=== PATIENT | female | born 1950 | race Caucasian/White ===

== ENCOUNTER 2020-06-03 06:53 | Observation (INO) ==
--- NOTE | 2020-05-12 15:00 | PAT Medication Instructions ---
Medication Instructions Date of Service May 12, 2020 Home Medications Medication Instructions Recorded epinephrine 0.3 mg/0.3 mL 0.3 mg IM Q15M PRN #2 ea 03/17/20 injection, auto-injector ascorbic acid (vitamin C) 1,000 mg tablet 1 g PO QAM aspirin 81 mg tablet,delayed release 81 mg PO QAM cholecalciferol (vitamin D3) 25 mcg (1,000 unit) capsule 25 mcg PO QPM ibuprofen 200 mg capsule 400 - 600 mg PO Q6H PRN magnesium 250 mg tablet 250 mg PO QPM multivitamin 1 tab PO QPM psyllium husk 0.4 gram capsule 0.4 g PO QPM epinephrine 0.3 mg/0.3 mL injection, auto-injector 0.3 mg IM Q15M PRN ] Cbd Oil 1 dose TOPICAL HS Continue as directed epinephrine 0.3 mg/0.3 mL injection, auto-injector 0.3 mg IM Q15M PRN (if needed) ASK your surgeon for instructions ibuprofen 200 mg capsule 400 - 600 mg PO Q6H PRN STOP taking 24 hours before surgery Cbd Oil 1 dose TOPICAL HS DO NOT take the morning of surgery ascorbic acid (vitamin C) 1,000 mg tablet 1 g PO QAM Take morning of surgery With a small sip of water, OTHERWISE NOTHING TO EAT OR DRINK AFTER MIDNIGHT: aspirin 81 mg tablet,delayed release 81 mg PO QAM Take evening before surgery cholecalciferol (vitamin D3) 25 mcg (1,000 unit) capsule 25 mcg PO QPM magnesium 250 mg tablet 250 mg PO QPM multivitamin 1 tab PO QPM psyllium husk 0.4 gram capsule 0.4 g PO QPM Other Notes If you have any questions please call us at [phone] or [phone] or [phone] or [phone]
--- NOTE | 2020-05-14 11:34 | Anesthesiology Consultation ---
Date of Service May 14, 2020 Assessment & Plan (1) Encounter for pre-operative examination: COVID Status: As of 05/14 assessment, patient denies travel to endemic area, known exposure/sick contacts, or symptoms of COVID19. Patient instructed that they and their household members must follow strict social distancing guidelines, wear a mask in public and avoid travel for 14 days prior to surgery. Preoperative COVID19 testing to be completed prior to surgery per surgeon's ar rangements. Patient made aware to self-isolate as much as possible between COVID testing and surgery. Chart Review Chart Review: Acceptable Risk for Surgery and Patient seen in Pre Admission Testing Teaching & Discussion Instructed NPO after midnight before surgery, except medications with 15 cc of w ater. Medication instructions provided according to the PAT guidelines. History Surgery Operation Date: 06/03/20 09:05 Proposed Procedures p Left Total Knee Arthroplasty - Quintin Mary MD Height/Weight Height: 5 ft 7 in Weight: 66 kg Allergies Allergy/AdvReac Type Severity Reaction Status Date / Time hornet venom Allergy Intermediate Hives Verified 05/11/20 13:11 codeine AdvReac Mild itching Verified 05/11/20 13:11 Medications Home Medications Medication Instructions Recorded Confirmed Last Taken ascorbic acid (vitamin C) 1,000 mg 1 g PO QAM 03/04/20 05/11/20 05/11/20 tablet aspirin 81 mg tablet,delayed 81 mg PO QAM 03/04/20 05/11/20 05/01/20 release cholecalciferol (vitamin D3) 25 25 mcg PO QPM 03/04/20 05/11/20 05/10/20 mcg (1,000 unit) capsule ibuprofen 200 mg capsule 400 - 600 mg PO Q6H PRN 03/04/20 05/11/20 05/01/20 magnesium 250 mg tablet 250 mg PO QPM 03/04/20 05/11/20 05/10/20 multivitamin 1 tab PO QPM 03/04/20 05/11/20 05/10/20 psyllium husk 0.4 gram capsule 0.4 g PO QPM 03/04/20 05/11/20 Unknown epinephrine 0.3 mg/0.3 mL 0.3 mg IM Q15M PRN #2 ea 03/17/20 05/11/20 Unknown injection, auto-injector Cbd Oil 1 dose TOPICAL HS 05/08/20 05/11/20 Unknown Past Medical History Medical History (Updated 05/14/20 @ 14:07 by Jere Mathias) Chronic back pain Degenerative disc disease Emphysema of lung Noted on pre-op CXR Mitral valve prolapse Pt reports very remote h/o echocardiogram, found incidentally. No murmur noted on exam. Osteoarthritis Restless leg syndrome Exercise / Class Metabolic Activity II 4-5 Yardwork/Stairs/Walk up hill (Denies CP or SOB with 1 FOS) Past Family History Family History Uncle Myocardial infarction Mother Hypertension Sister Hypertension Denies family history of Ovarian cancer Prostate cancer Breast cancer Colorectal cancer Past Surgical History Surgical History H/O knee surgery MULTIPLE LEFT KNEE SURGERY (INCLUDING MUSCLE TRANSPLANT) History of cataract surgery LEFT History of esophagogastroduodenoscopy (EGD) History of left femoral derotational osteotomy Nausea and vomiting after administration of anesthetic agent Past Anesthesia History No Hx of Anesthesia Complications (other than PONV and mild headache after spinal) and No Family Hx of Anesthesia Complications Pt reports mild headache after spinal injections in the past, denies true spinal headache. History of PONV History of PONV and Hx of Motion Sickness Social History Smoking Status: Never smoker Do You Dip or Chew Tobacco: No Hx Alcohol Use: Yes Alcohol type: beer alcohol intake frequency: 0-2 drinks per day Hx Substance Use: No substance use type: other Substance Use Type Other:: CBD OIL TOPICALLY HAND/NIGHTLY Last Used Substance: Unknown Review of Systems Pt denies any recent chest pain, shortness of breath, palpitations, cough, fever , URI, or uncontrolled acid reflux. Physical Exam Vital Signs BP: 128/79 P: 75bpm SPO2: 100% RA T: 97.8 F R: 12 ENMT Mouth: + dental restorations (2 gold crowns); no chipped teeth and no loose teeth Thyromental Distance: > or= 3.5 Finger Breadths Mallampati Class: II Neck normal visual inspection; neck extension not limited Respiratory normal respiratory effort Auscultation: lungs clear to auscultation bilaterally Cardiovascular Rate/Rhythm: regular rate and regular rhythm Heart Sounds: no murmur Extremities: no edema Testing Laboratory Results 05/14/20 11:45 05/14/20 11:45 PT 10.9 Seconds (9.0-12.0) 05/14/20 11:45 INR 1.0 (0.9-1.1) 05/14/20 11:45 APTT 24.8 Seconds (21.0-31.0) 05/14/20 11:45 Blood Type B Positive 05/14/20 11:45 Antibody Screen NEGATIVE 05/14/20 11:45 Electrocardiogram Date: 05/08/20 Findings: + NSR @ (63bpm) Chest X-Ray Date: 05/14/20 IMPRESSION: 1. No active disease in the chest. 2. Suspect emphysema.
--- NOTE | 2020-05-14 12:10 | XRay Report ---
TWO VIEW CHEST CLINICAL HISTORY: Preoperative examination. FINDINGS: PA and lateral chest radiographs are obtained. No prior studies are available for compariso n at the time of dictation. The cardiomediastinal silhouette is unremarkable. The lungs are hyperinf lated and hyperlucent with flattening the diaphragm. The appearance suggests obstructive physiology. Nonspecific interstitial thickening is likely chronic. No airspace consolidation or pleural effusion is seen. There is no pneumothorax. The skeletal structures are osteopenic. The bony thorax appears in tact. Degenerative change and hyperkyphosis is noted in the thoracic spine. IMPRESSION: 1. No active disease in the chest. 2. Suspect emphysema. ACT 112: Negative or not required by law. Electronically signed by: Ravi Ansari M.D. 05/14/2020 12:09 PM
[2020-05-14 12:23] LABS: Basophils # (auto) 0.04 K/uL (0-0.2); Basophils % (auto) 0.8 %; Eosinophils # (auto) 0.07 K/uL (0-0.5); Eosinophils % (auto) 1.4 %; Hematocrit (blood only) 39.7 % (37-47); Hemoglobin 13.8 g/dL (12.0-16.0); Immature Granulocytes # (auto) 0.01 K/uL (0.00-0.02); Immature Granulocytes % (auto) 0.2 %; Lymphocytes # (auto) 1.35 K/uL (1.2-3.4); Lymphocytes % (auto) 26.9 %; Mean Corpuscular Hemoglobin 30.1 pg (25-34); Mean Corpuscular Hgb Conc 34.8 g/dL (32-36); Mean Corpuscular Volume 86.7 fL (80-100); Mean Platelet Volume 9.3 fL (7.4-10.4); Neutrophils # (auto) 3.25 K/uL (1.4-6.5); Neutrophils % (auto) 64.7 %; Platelet Count 348 K/uL (130-400); RDW Coefficient of Variation 12.1 % (11.5-14.5); RDW Standard Deviation 38.8 fL (36.4-46.3); Red Blood Count 4.58 M/uL (4.2-5.4); White Blood Count 5.02 K/uL (4.8-10.8)
[2020-05-14 12:39] LABS: Partial Thromboplastin Ratio 0.9; Partial Thromboplastin Time 24.8 Seconds (21.0-31.0); Prothrombin Time 10.9 Seconds (9.0-12.0)
[2020-05-14 14:21] LABS: BUN Creatinine Ratio 18.5 (10-20); Blood Urea Nitrogen 12 mg/dl (7-18); C Reactive Protein < 0.29 mg/dl (0-0.29); Calcium 9.1 mg/dl (8.5-10.1); Carbon Dioxide 26 mmol/L (21-32); Chloride 104 mmol/L (98-107); Creatinine Clr Calc Pharmacy 78.2 ml/min; Est GFR (African American) 104.5; Est GFR (Non-African American) 90.1; Glucose 85 mg/dl (70-99); Sodium 136 mmol/L (136-145)
[~2020-06-03 06:53] MED LIST: ACETAMINOPHEN 500 MG TAB PO SCH; BUPIVACAINE LIPOSOME/PF 266 MG, BUPIVACAINE/EPINEPHRINE 50 ML, SODIUM CHLORIDE 0.9% 30 ... INFIL SCH; FAMOTIDINE 20 MG TAB PO SCH; GABAPENTIN 300 MG CAP PO SCH; LR 500ML BOLUS, THEN 15ML/HR IV SCH; LR 60ML/HR IV SCH; METOCLOPRAMIDE HCL 10 MG TABLET PO SCH; TRANEXAMIC ACID 1,000 MG **IV Intra-op IV SCH; ceFAZolin 2000MG 2,000 MG/15 ML SYR IV SCH
[2020-06-03] MEDS ORDERED: BUPIVACAINE 0.5 % 5 MG/1 ML PF 10ML VIAL ONE (07:30)
[2020-06-03] MEDS ORDERED: BUPIVACAINE 0.25% 30 ML VIAL ONE ×2 (07:30→09:08)
[2020-06-03] MEDS ORDERED: LIDOCAINE HCL 2% 2 ML VIAL/AMP(20MG/ML) INFIL ONE (07:42)
[2020-06-03] MEDS ORDERED: PROPOFOL IV EMULSION 10 MG/ML 20 ML VIAL IV ONE (07:42)
[2020-06-03] MEDS ORDERED: ePHEDrine sulfate 50 MG/ML SYR ONE (07:42)
[2020-06-03] MEDS ORDERED: fentaNYL citrate 100 MCG/2 ML VIAL ONE (07:43)
[2020-06-03] MEDS ORDERED: MIDAZOLAM HCL 1 MG/ML 2ML VIAL ONE ×2 (07:43)
[2020-06-03] MEDS ORDERED: ePHEDrine sulfate 50 MG/ML AMP IV PRN (08:15)
[2020-06-03] MEDS ORDERED: ONDANSETRON INJ 2 MG/ML 2 ML VIAL IV PRN ×2 (08:15→12:20)
[2020-06-03] MEDS ORDERED: fentaNYL citrate 100 MCG/2 ML VIAL IV PRN (08:15)
[2020-06-03] MEDS ORDERED: ATROPINE SULFATE 0.1 MG/ML 10ML SYR IV PRN (08:15)
[2020-06-03] MEDS ORDERED: SODIUM CHLORIDE 0.9% PF 50 ML VIAL ONE (09:08)
[2020-06-03] MEDS ORDERED: EPINEPHrine INJ 1 MG/ML AMP ONE (09:08)
[2020-06-03] MEDS ORDERED: BUPIVACAINE LIPOSOME 1.3% 266 MG/20 ML VIAL ONE (09:08)
[2020-06-03] MEDS ORDERED: BACITRACIN INJ 50,000 UNIT VIAL ONE (09:08)
--- NOTE | 2020-06-03 09:15 | History & Physical Bridge Note ---
Date of Service June 03, 2020 History & Physical Bridge Note I have examined the patient, reviewed the History & Physical and in the interval since the performance of the History & Physical I have noted the following changes of clinical significance: no changes noted
[2020-06-03] MEDS ORDERED: VANCOMYCIN HCL 1000MG/20ML VIAL ONE (09:35)
--- NOTE | 2020-06-03 11:18 | Post Operative Brief Note ---
PG Immediate Post Op with CF Date of Surgery June 03, 2020 Pre & Post Diagnosis Operation Date: 06/03/20 09:05 Pre-Op Diagnosis: Left Knee Degenerative Joint Disease Post-Op Diagnosis: Left Knee Degenerative Joint Disease I identified the patient and participated in the time-out.: Yes Procedure Operation Date: 06/03/20 09:05 Actual Procedures p Left Total Knee Arthroplasty, Cemented(Left) - Quintin Mary MD Surgeon Quintin Mary MD Breeding Manager GRACE Moya Estimated Blood Loss 50 Findings Consistent with Post-Op Diagnosis Fluids 2000 cc Specimens Specimen Description: Permanent Specimen A: Left knee bone and tissue Drains Kellogg Catheter Anesthesia Type Spinal MAC Complications none Disposition Accompanied Patient To Recovery: No Disposition: Recovery Room
--- NOTE | 2020-06-03 12:02 | XRay Report ---
XR knee LT 1 or 2V routine HISTORY: 70 years-old Female Surgical Post Op left knee total joint arthroplasty COMPARISON: Knee radiographs 03/18/2020 TECHNIQUE: 2 views of the left knee FINDINGS: Left knee total joint arthroplasty and patella resurfacing. No acute fracture, malalignment or unexpe cted opaque foreign body. Anterior midline skin alex are present along with expected postsurgical soft tissue swelling and deep tissue air with surgical drainage catheter. IMPRESSION: Left knee total joint arthroplasty and patella resurfacing with expected postoperative ch anges. ACT 112: Negative or not required by law. The above report was generated using voice recognition software. It may contain grammatical, syntax o r spelling errors. Electronically signed by: Jeronimo Del Valle M.D. 06/03/2020 12:00 PM
[2020-06-03] MEDS ORDERED: HYDROmorphone INJ 0.5 MG/0.5 ML SYR IV PRN (12:20)
[2020-06-03] MEDS ORDERED: MAGNESIUM HYDROXIDE SUSP 30 ML UDC PO PRN (12:20)
[2020-06-03] MEDS ORDERED: ALUMINUM/MAGNESIUM SUSP 30 ML UDC PO PRN (12:20)
[2020-06-03] MEDS ORDERED: METOCLOPRAMIDE HCL INJ 5 MG/ML 2 ML VIAL IV PRN (12:20)
[2020-06-03] MEDS ORDERED: NALOXONE HCL 0.4 MG/1 ML VIAL/CARP IV PRN (12:20)
[2020-06-03] MEDS ORDERED: bisacodyL 10 MG SUPP PR PRN (12:20)
[2020-06-03] MEDS ORDERED: EPINEPHrine ADULT AUTO-INJECT 0.3 MG SYR IM PRN (12:20)
[2020-06-03] MEDS: ACETAMINOPHEN 500 MG TAB PO SCH ×2 (14:00→23:57)
--- NOTE | 2020-06-03 14:31 | Anesthesiology Progress Note ---
Date of Service June 03, 2020 Anesthesia Post Procedure Vital Signs Vital Signs: Temp Pulse Pulse Resp BP BP Pulse Ox 06/03/20 14:10 63 16 119/76 97 06/03/20 13:26 78 16 116/73 96 06/03/20 11:50 37.0 C 76 15 128/74 97 06/03/20 11:40 73 19 121/76 95 06/03/20 11:30 76 12 125/74 95 06/03/20 11:24 36.5 C 80 16 129/79 95 06/03/20 08:29 36.8 C 75 18 151/89 H 98 06/03/20 07:11 36.7 C 81 18 151/79 H Transfer of Care Handoff Completed per policy Notes Mental Status: alert / awake / arousable and participated in evaluation Patient Amnestic to Procedure: Yes Nausea / Vomiting: adequately controlled Pain: adequately controlled Airway Patency, RR, SpO2: stable & adequate BP & HR: stable & adequate Hydration State: stable & adequate Neuraxial Anesthesia: was administered and sensory block is resolving Anesthetic Complications: no major complications apparent and Pt Satisfied with anesthetic care
[2020-06-03] MEDS: KETOROLAC TROMETHAMINE 15 MG/ML VIAL IV SCH ×2 (15:38→20:22)
[2020-06-03] MEDS: SODIUM CHLORIDE 0.9% 1000ML 1,000 ML IV SCH ×2 (15:38→23:58)
[2020-06-03] MEDS: Scopolamine CHECK PATCH PLACEMENT SCH ×2 (17:00→23:59)
[2020-06-03] MEDS ORDERED: ASCORBIC ACID 500 MG TAB PO SCH (17:00)
[2020-06-03] MEDS: FERROUS GLUCONATE 324 MG TAB PO SCH (17:00)
[2020-06-03] MEDS: ceFAZolin 1000MG 1,000 MG/7.5 ML SYR IV SCH (17:11)
[2020-06-03] MEDS ORDERED: TRANEXAMIC ACID / 0.7% NACL 1,000 MG/100 ML BAG IV SCH (17:21)
--- NOTE | 2020-06-03 19:14 | Operative Report ---
Post Operative Report Pre & Post Diagnosis Operation Date: 06/03/20 09:05 Pre-Op Diagnosis: Left Knee Degenerative Joint Disease Post-Op Diagnosis: Left Knee Degenerative Joint Disease I identified the patient and participated in the time-out.: Yes Procedure Operation Date: 06/03/20 09:05 Actual Procedures p Left Total Knee Arthroplasty, Cemented(Left) - Quintin Mary MD Surgeon Quintin Mary MD Brake Liner GRACE Moya Estimated Blood Loss 50 Findings Consistent with Post-Op Diagnosis Operative findings revealed advanced left knee tricompartment DJD. She had extensive grade 4 [id number] disease in all 3 compartments with erosions in all 3 compartments. She had osteophytes in all 3 compartments. She had the ACL and PCL deficiency with bone growing in the intercondylar notch. She had a very stiff knee with about a 10 degree flexion contracture and could only bend about 90 degrees. Fluids 2000 cc Specimens Left knee sent for pathology. Drains None. Anesthesia Type Spinal MAC Complications none Disposition Accompanied Patient To Recovery: No Disposition: Recovery Room Indications Patient is a 70-year-old female has had a long history of left knee problems. She is undergone a 5+ different operations on this knee in the past including VMO advancement, ACL reconstruction, and distal femoral osteotomy. Over the years she developed increased pain discomfort and deformity to her knee. She is now elected proceed with surgical treatment. Description of Procedure Operative implants consisted of: 1. Biomet Vanguard size 67.5 left posterior stabilized femoral component. 2. Biomet size 75 tibial tray. 3. 14 mm posterior stabilized polyethylene plus insert 4. 31 x 8 all polypatella. Patient was taken to the operating identified and placed on the operating table supine position. All contact areas were properly padded. IV antibiotics tried by anesthesia team. A spinal anesthetic and abductor canal block had provided holding area. Kellogg catheter was placed in sterile fashion. A left thigh turn was then placed in the left lower extremity was then prepped and draped in usual sterile fashion. The left leg was elevated exsanguinated with the use of an Esmarch and turns placed at 300 mmHg. An anterior approach left knee was then performed using the previous VMO mid incision. It was very curvilinear over the medial side of the kneecap and then extended proximally and distally. Full-thickness flaps were elevated down to the quad and extensor mechanism. Full-thickness flaps were elevated laterally. Her quad was extremely abnormal due to the previous VMO advancement. A medial parapatellar arthrotomy incision was made. Some subperiosteal dissection was carried out medially. The fat pad was resected from each patella tendon. Great care was taken throughout the procedure protect the patella tendon insertion at all times. The patella was subluxated laterally. The knee was flexed. The osteophytes were taken off the distal femur. The ACL and PCL were completely absent and covered with bone. The tibia was then subluxated anteriorly. The external tibial alignment jig was then placed in the interface the tibia and adjusted 12 mm medially. Proximal tibial cut was made to remove about 3 to 4 mm of bone from the medial tibia. The tibia was then sized to a size 75. We did try to maximize coverage due to her severe osteopenia. Attention drawn the femur. The distal femur was then with a sharp drop with intramedullary canal was suction. A left 5 degree valgus cutting guide was placed. This femoral cutting block was pinned in place and the distal femoral cut was made to take an additional 3 mm of bone off distal femur. I then brought the knee out in extension and very carefully released the IT band and 7 the posterior lateral capsule in order to equalize extension gap. Great care was taken to protect the peroneal nerve at all times. The knee was then flexed. The femur was then sized to a size 67.5. The AP cutting block was pinned parallel to the epicond ylar axis which was 70 degrees of external rotation. The anterior cut, anterior chamfer, posterior cut, posterior chamfer cuts were made. Box cutting guide was placed in just slight lateral box cut was made. The knee was flexed. The remnants of the medial lateral menisci were excised. Some large osteophytes were taken off the posterior aspect of the femur. A trial femoral component was placed. The tibial tray was pinned in maximum external rotation and the drill and stem punch were used to create defect in proximal distal tibia for the tibial tray. I did have to release the popliteus in order to equalize the flexion space. I then trialed the knee. The 14 insert fit most appropriately. There was still a little bit of MCL laxity so we placed the PS plus insert. Attention drawn the patella. The patella was cleaned of all soft tissues. Patella thickness measured 22 mm in thickness was cut down to 14. Was sized to a size 31 patella. The lateral osteophyte was removed. Patella button was placed. Knee was taken through range of motion patella tracked nicely with no thumbs test. Attention drawn to placing the permanent components. All trial components were removed. A bone plug was placed in the distal femur limit blood loss. A double batch [place] G cement was mixed. I did add an additional gram of vancomycin due to her history of multiple surgeries. A Biomet Vanguard size 67.5 left posterior stabilized femoral component, size 75 tibial tray, 14 mm PS plus insert and a 31 x 8 all polypatella were then cemented in place. Knee was brought out in full extension total cement hardened. Final cement checkup then performed. Pericapsular tissues were injected with total 100 cc of combination of 20 cc of Exparel, 30 cc normal saline, 50 cc of quarter percent Marcaine with epinephrine. The patient did receive 1 g tranexamic acid per the tourniquet was then let down for final turn time 67 minutes. Hemostasis assured use electrocautery. The extensor mechanism closed with combination 1 PDS suture and #1 Vicryl suture in [id number] fashion. Extensor mechanism checked found to be intact the subcutaneous tissue then closed with 2 Dexon suture in a buried interrupted fashion skin was closed skin alex. Leg was then cleaned dried a sterile dressing composed Xeroform, 4 x 4's, sterile cast padding, Samm bandage were applied. Patient then transfer red to the recovery room in stable condition. The patient tolerated procedure well and there were no complications. Tin Moya, my physician investment sales assistant, was present for the entire procedure. His assistance was essential and required for appropriate patient positioning, prepping and draping, surgical exposure, performing the technical details of the operation, placement the implants, closure of the wound, and placement of the sterile bandage. I attest to the content of the Intraoperative Record and any orders documented therein. Any exceptions are noted below.
[2020-06-03] MEDS: DOCUSATE SODIUM 100 MG CAP PO SCH (20:23)
[2020-06-03] MEDS: ASPIRIN 81 MG ECTAB PO SCH (20:23)
[2020-06-03] MEDS ORDERED: MAGNESIUM OXIDE 400 MG TAB PO SCH (21:00)
[2020-06-03] MEDS ORDERED: PSYLLIUM 58.6% POWDER PACKET PO SCH (21:00)
[2020-06-03] MEDS ORDERED: SENNA 8.6 MG TAB PO SCH (21:00)
[2020-06-03] MEDS ORDERED: NON-FORMULARY MEDICATION (Cbd Oil 1 EA) TOP SCH (21:00)
[2020-06-03] MEDS ORDERED: MULTIVITAMIN TAB PO SCH (21:00)
[2020-06-03] MEDS ORDERED: CHOLECALCIFEROL 1,000 UNITS 25 MCG TAB PO SCH (21:00)
[2020-06-03] MEDS: traMADol HCL 50 MG TABLET PO PRN (23:54)
[2020-06-04] MEDS: ceFAZolin 1000MG 1,000 MG/7.5 ML SYR IV SCH (02:13)
[2020-06-04] MEDS: KETOROLAC TROMETHAMINE 15 MG/ML VIAL IV SCH ×2 (02:13→07:45)
[2020-06-04] MEDS: traMADol HCL 50 MG TABLET PO PRN (05:56)
[2020-06-04] MEDS: DOCUSATE SODIUM 100 MG CAP PO SCH (07:42)
[2020-06-04] MEDS: FERROUS GLUCONATE 324 MG TAB PO SCH (07:42)
[2020-06-04] MEDS: ASPIRIN 81 MG ECTAB PO SCH (07:42)
[2020-06-04] MEDS: Scopolamine CHECK PATCH PLACEMENT SCH (07:43)
[2020-06-04] MEDS: ACETAMINOPHEN 500 MG TAB PO SCH (07:45)
[2020-06-04 08:00] VITALS: PULSE 64; TEMP 97.6; O2SAT 95
[2020-06-04 08:16] LABS: Hematocrit (blood only) 33.1 % (37-47); Hemoglobin 11.3 g/dL (12.0-16.0); Mean Corpuscular Hemoglobin 29.7 pg (25-34); Mean Corpuscular Hgb Conc 34.1 g/dL (32-36); Mean Corpuscular Volume 87.1 fL (80-100); Mean Platelet Volume 9.3 fL (7.4-10.4); Platelet Count 251 K/uL (130-400); RDW Coefficient of Variation 12.2 % (11.5-14.5); RDW Standard Deviation 39.2 fL (36.4-46.3); White Blood Count 6.21 K/uL (4.8-10.8)
--- NOTE | 2020-06-04 08:37 | Progress Notes ---
DATE: 06/04/2020 SUBJECTIVE: A 70-year-old female postoperative day 1 from a left knee replacement. She is doing pretty well. Had a little bit more pain last night, but doing okay with pain pills. No chest pain or shortness of breath. Not feeling dizzy or lightheaded. OBJECTIVE: VITAL SIGNS: Temperature 36.5. Vital signs stable. GENERAL: Shows a pleasant, middle-aged female. She is lying in bed this morning and looks pretty comfortable. EXTREMITIES: Examination of the left leg reveals the leg to be well aligned. Dressing is clean, dry and intact. She can dorsiflex and plantarflex her foot appropriately. She can do a good straight leg raise. LABORATORY DATA: Labs are pending. ASSESSMENT: A 70-year-old white female postoperative day 1 from a left knee replacement. She is doing pretty well. Pain is controlled. She is neurologically intact. PLAN: 1. DVT prophylaxis including thigh-high TEDs, SCDs, and aspirin twice a day. 2. PT/OT. Weight bear as tolerated. Left total knee protocol. 3. Pain control, doing okay with current pain regimen. 4. Disposition: Plan to discharge to home with some home health. We will see how therapy goes today and her pain control.
[2020-06-04 08:42] LABS: BUN Creatinine Ratio 16.6 (10-20); Calcium 8.3 mg/dl (8.5-10.1); Est GFR (African American) 106.1; Est GFR (Non-African American) 91.5
[2020-06-04] MEDS ORDERED: ASCORBIC ACID 500 MG TAB PO SCH (09:00)
[2020-06-04] MEDS ORDERED: MULTIVITAMIN TAB PO SCH (09:00)
[2020-06-04 10:31] VITALS: BP 127/69
--- NOTE | 2020-06-08 15:30 | Discharge Summary ---
Date of Service June 08, 2020 Admission HPI Per Admitting Provider Documented in the H & P Admission Exam (Per Admitting) Constitutional Documented in the H & P Discharge Data Consultations 06/03/20 12:20 Consult Case Management - Discharge Planning Routine Procedures Performed Operation Date: 06/03/20 09:05 Actual Procedures p Left Total Knee Arthroplasty, Cemented(Left) - Quintin Mary MD Hospital Course (1) Status post total left knee replacement: This patient is a 70 year old female admitted on 06/03/20 and underwent total knee arthroplasty. She tolerated the procedure well and there were no complications. Transferred to the PACU post op and later to the orthopedic floor for further care. She was given ancef for antibiotic prophylaxis. She was also given LIZZETTE stockings, SCDs, and aspirin for DVT prophylaxis. Hemoglobin, hematocrit, and vital signs were monitored during her hospital stay and remained stable. Did not require any blood transfusions. There were no complications during her hospital stay. By post op day #1 the patient was tolerating a regular diet, pain was reasonably controlled with oral pain medicine, and she was participating in physical therapy. On post op day #1 the patient was discharged home and set up with home health care. She was given printed discharge instructions including prescriptions for extra strength tylenol, aspirin, iron supplement, and tramadol. Continue physical therapy, weight bearing as tolerated. Continue LIZZETTE stockings. Follow up approximately 2 weeks post op or sooner if there are problems or concerns. Coding Level of Care Code None Diagnoses Status post total left knee replacement Z96.652
== END 2020-06-04 13:12 | disposition home health service (06) ==
LOC: 3W 06:53 → ASU 06:53
DX: Z88.5 Allergy status to narcotic agent; M17.12 Unilateral primary osteoarthritis, left knee; Z82.49 Family history of ischemic heart disease and other diseases of the circulatory system; Z79.82 Long term (current) use of aspirin; Z79.899 Other long term (current) drug therapy; Z91.030 Bee allergy status

== ENCOUNTER 2020-10-13 08:29 | Observation (INO) ==
--- NOTE | 2020-10-05 09:48 | Anesthesiology Consultation ---
Date of Service October 05, 2020 Assessment & Plan (1) Encounter for pre-operative examination: Chart Review Chart Review: Acceptable Risk for Surgery (pending preop Covid testing results ) and Patient NOT seen in Pre Admission Testing *Pt [facility] Per nursing assessment 09/17/20, patient denies any recent travel. No known Covid positive contacts or Covid related symptoms. No known Covid infection in the past 90 days. Scheduled for preop Covid testing 10/07/20= will await results. Pt received first Covid vaccine. Left TKA 06/03/20= Done under SAB at L4-5 with 1 attempt. No issues noted per anesthesia record. History Surgery Operation Date: 10/13/20 07:00 Proposed Procedures p Right Total Knee Arthroplasty - Quintin Mary MD Height/Weight Height: 5 ft 7 in Weight: 68.039 kg Allergies Allergy/AdvReac Type Severity Reaction Status Date / Time hornet venom Allergy Intermediate Hives Verified 09/17/20 12:19 codeine AdvReac Mild itching Verified 09/17/20 12:19 Medications Home Medications Medication Instructions Recorded Confirmed Last Taken ascorbic acid (vitamin C) 1,000 mg 1 g PO QAM 03/04/20 09/18/20 06/02/20 09:00 tablet cholecalciferol (vitamin D3) 25 25 mcg PO QPM 03/04/20 09/18/20 06/02/20 22:00 mcg (1,000 unit) capsule ibuprofen 200 mg capsule 400 - 600 mg PO Q6H PRN 03/04/20 09/18/20 05/26/20 magnesium 250 mg tablet 250 mg PO QPM 03/04/20 09/18/20 06/02/20 22:00 multivitamin 1 tab PO QPM 03/04/20 09/18/20 06/02/20 22:00 psyllium husk 0.4 gram capsule 0.4 g PO QPM 03/04/20 09/18/20 06/02/20 22:00 epinephrine 0.3 mg/0.3 mL 0.3 mg IM Q15M PRN #2 ea 03/17/20 09/18/20 Unknown injection, auto-injector Cbd Oil 1 dose TOPICAL HS PRN 05/08/20 09/18/20 Unknown aspirin [Aspir-81] 81 mg PO QAM 09/17/20 09/18/20 Unknown calcium 500 mg PO PM 09/17/20 09/18/20 Unknown Past Medical History Medical History Borderline high cholesterol Chronic back pain Degenerative disc disease DJD (degenerative joint disease) Emphysema of lung Noted on pre-op CXR Mitral valve prolapse Pt reports very remote h/o echocardiogram, found incidentally. No murmur noted on PAT exam on 05/14/20 for left TKA on 06/03/20 which patient tolerated well per records Osteoarthritis Restless leg syndrome Past Family History Family History Uncle Myocardial infarction Mother Hypertension Sister Hypertension Denies family history of Ovarian cancer Prostate cancer Breast cancer Colorectal cancer Past Surgical History Surgical History (Updated 10/05/20 @ 10:12 by Gina Medina PA-C) H/O knee surgery MULTIPLE LEFT KNEE SURGERY (INCLUDING MUSCLE TRANSPLANT) History of cataract surgery LEFT History of dilatation and curettage History of esophagogastroduodenoscopy (EGD) History of left femoral derotational osteotomy History of left knee replacement Left TKA 06/03/20= Done under SAB at L4-5 with 1 attempt. Nausea and vomiting after administration of anesthetic agent Social History Smoking Status: Never smoker Do You Dip or Chew Tobacco: No Hx Alcohol Use: Yes Alcohol type: beer and wine alcohol intake frequency: 0-2 drinks per day Hx Substance Use: No substance use type: does not use Substance Use Type Other:: CBD OIL TOPICALLY HAND/NIGHTLY Last Used Substance: Unknown Testing Laboratory Results Blood Type B Positive 09/25/20 09:41 Antibody Screen NEGATIVE 09/25/20 09:41 Laboratory Tests 09/25/20 09/25/20 09/25/20 09:37 09:37 09:37 WBC 3.93 L Hgb 13.7 Hct 40.2 Plt Count 298 PT 10.3 INR 1.0 Sodium 138 Potassium 4.0 Chloride 106 Carbon Dioxide 26 BUN 11 Creatinine 0.57 L Glucose 93 Electrocardiogram Date: 05/08/20 Findings: + NSR @ (63bpm) Chest X-Ray Date: 05/14/20 IMPRESSION: 1. No active disease in the chest. 2. Suspect emphysema.
[~2020-10-13 08:29] MED LIST changes: +BUPIVACAINE 0.5 % 5 MG/1 ML PF 10ML VIAL ONE; +EPINEPHrine INJ 1 MG/ML AMP ONE; +ROPIVACAINE 0.5% 5 MG/ML 30 ML VIAL ONE; +Scopolamine 1 MG TDSY TD SCH
--- NOTE | 2020-10-13 09:37 | History & Physical Bridge Note ---
Date of Service October 13, 2020 History & Physical Bridge Note I have examined the patient, reviewed the History & Physical and in the interval since the performance of the History & Physical I have noted the following changes of clinical significance: no changes noted
[2020-10-13] MEDS ORDERED: fentaNYL citrate 100 MCG/2 ML VIAL ONE (11:01)
[2020-10-13] MEDS ORDERED: MIDAZOLAM HCL 1 MG/ML 2ML VIAL ONE (11:01)
[2020-10-13] MEDS ORDERED: BUPIVACAINE LIPOSOME 1.3% 266 MG/20 ML VIAL ONE (11:43)
[2020-10-13] MEDS ORDERED: SODIUM CHLORIDE 0.9% PF 50 ML VIAL ONE (11:43)
[2020-10-13] MEDS ORDERED: BUPIVACAINE 0.25% 30 ML VIAL ONE (11:44)
[2020-10-13] MEDS ORDERED: BACITRACIN INJ 50,000 UNIT VIAL ONE (11:44)
[2020-10-13] MEDS ORDERED: EPINEPHrine INJ 1 MG/ML AMP ONE (11:44)
[2020-10-13] MEDS ORDERED: HYDROmorphone INJ 2 MG/ML SYR/VIAL ONE (12:36)
[2020-10-13] MEDS ORDERED: PROPOFOL IV EMULSION 10 MG/ML 20 ML VIAL IV ONE (13:51)
[2020-10-13] MEDS ORDERED: ONDANSETRON INJ 2 MG/ML 2 ML VIAL ONE (13:51)
[2020-10-13] MEDS ORDERED: LIDOCAINE HCL 2% 2 ML VIAL/AMP(20MG/ML) INFIL ONE (13:52)
--- NOTE | 2020-10-13 14:07 | Post Operative Brief Note ---
PG Immediate Post Op with CF Date of Surgery October 13, 2020 Pre & Post Diagnosis Operation Date: 10/13/20 10:40 Pre-Op Diagnosis: Right Knee Degenerative Joint Disease; Knee Pain Post-Op Diagnosis: Right Knee Degenerative Joint Disease; Knee Pain I identified the patient and participated in the time-out.: Yes Procedure Operation Date: 10/13/20 10:40 Actual Procedures p Right Total Knee Arthroplasty(Right) - Quintin Mary MD Surgeon Quintin Mary MD Felt Hooker GRACE Moya Estimated Blood Loss 50 Findings Consistent with Post-Op Diagnosis Fluids 1200 cc Specimens Specimen Description: Permanent Specimen: A) Right Knee Bone and Tissue Drains Kellogg Catheter Anesthesia Type General Regional Complications none Disposition Accompanied Patient To Recovery: No Disposition: Recovery Room
--- NOTE | 2020-10-13 14:21 | Operative Report ---
Post Operative Report Pre & Post Diagnosis Operation Date: 10/13/20 10:40 Pre-Op Diagnosis: Right Knee Degenerative Joint Disease; Knee Pain Post-Op Diagnosis: Right Knee Degenerative Joint Disease; Knee Pain I identified the patient and participated in the time-out.: Yes Procedure Operation Date: 10/13/20 10:40 Actual Procedures p Right Total Knee Arthroplasty(Right) - Quintin Mary MD Surgeon Quintin Mary MD [employer] GRACE Moya Estimated Blood Loss 50 Findings Consistent with Post-Op Diagnosis Operative findings with advanced right knee tricompartment DJD. She had pretty extensive grade 4 [id number] disease in all 3 compartments most severe in the lateral side. She diffuse osteopenia particular in the medial side. Moderate- sized joint effusion. She had a fixed valgus deformity to her knee. Fluids 1200 cc. Specimens Right knee sent for pathology. Drains None. Anesthesia Type General Regional Complications none Disposition Accompanied Patient To Recovery: Yes Disposition: Recovery Room Indications Patient is a 70-year-old female is had a long history of knee problems and progressive arthritis of both knees. She is extensive history of surgery in the left knee and had her left knee replaced about 3 or 4 months ago is done extremely well from this. Continued be limited by right knee pain discomfort. X-ray showed advanced right knee DJD. She elected proceed with surgical treatment. Description of Procedure Operative implants consist of: 1. Biomet Vanguard size 65 right posterior stabilized femoral component. 2. Biomet size 71 tibial tray. 3. 12 mm posterior stabilized polyethylene insert. 4. 28 x 8 all polypatella. The patient was taken the operating, identified, placed on the operating table supine position but all contact areas were properly padded. IV antibiotics were 5 by anesthesia team. A spinal anesthetic had been implemented the holding area but unsuccessful. She did have an abductor canal block. General anesthetic was implemented. A Kellogg catheter was placed in sterile fashion. Right thigh turn was then placed in the right lower extremities and prepped draped in usual sterile fashion. The right leg was elevated exsanguinated with use of an Esmarch interspace at 3 mmHg. An anterior approach to the right knee was then performed to longitudinal incision centered over the patella. Sharp dissection was got through subcutaneous tissue down the extensor mechanism. Medial parapatellar arthrotomy incision was made. Some subperiosteal dissection was carried out medially. The fat pad was resected from each patella tendon. Lateral patellofemoral ligament was released and the patella subluxated laterally. The knee was flexed. The osteophytes were taken off distal femur. The ACL and PCL were then released from distal femur and the tibia subluxated anteriorly. External tibial alignment jig was then placed in the interface the tibia and adjusted 12 mm medially. Proximal tibial cut was made to move a couple millimeters from the lateral side. The tibia size a size 71. Attention drawn the femur. The distal femur during the sharp drop with intramedullary canal was suction. A right 5 degree valgus cutting guide was placed. The distal femoral cutting block was pinned in place. Distal femoral cut was made to take an additional 3 mm of bone off distal femur. I then brought the knee out in extension. I did release the IT band in the posterior lateral capsule in order to equalize extension gap. I then sized the knee. The knee sized to a size 65. Downsize a slightly. The AP cutting block was pinned parallel to the epicondylar axis wh ich was 4 degrees of external rotation. Anterior cut, anterior chamfer, posterior cut, posterior chamfer cuts were made. Box cutting guide was placed in just slight lateral box cut was made. The knee was flexed. The remnants of the medial lateral menisci were excised. The osteophytes were taken off the posterior aspect of the femur. I did have to release the popliteus in order to equalize the flexion gap. A trial femoral component was placed. The tibial tray was pinned in maximum external rotation and the drill and stem punch were used to create defect in proximal to for the tibial tray. Knee was then trialed and the 12 mm insert was appropriately. Attention drawn the patella. Nipride the patella was cleaned of all soft tissues. Patella thickness measured 21 mm in thickness was cut down 13. Size a size 28 patella. The lug holes were drilled for the 28 patella. Lateral osteophyte was removed. Patella button was placed. Knee was taken through range of motion patella tracked nicely with no thumbs test. Attention drawn to placing permanent components. All trial components were removed. Bone plug was placed in the distal femur limit blood loss put a double batch Palacos G cement was mixed. A Biomet CommonBondguard size 65 right posterior stabilized femoral component, size size 71 tibial tray, a 12 mm posterior stabilized polyethylene insert, and a 28 x 8 all polypatella were then cemented in place. Knee was brought out in full extension total cement hardened. Final cement check was then performed. Pericapsular tissues were injected with total 100 cc of combination of 20 cc of Exparel, 30 cc of normal saline, 50 cc of quarter percent Marcaine with epinephrine. Patient did receive 1 g tranexamic acid. The tourniquet was then let down for final tourniquet time 65 minutes. Hemostasis assured with electrocautery. Extensor mechanism closed with combination 1 PDS suture #1 Vicryl suture in [id number] fashion. Extensor mechanism checked found to be intact the subcutaneous tissue then closed 2 Dexon suture in a buried interrupted fashion skin was closed skin alxe. Leg was then cleaned and dried a sterile dressing composed of Xeroform, 4 x 4's, sterile cast padding, Samm bandage were applied. Patient tolerated procedure well and there were no complications. She was brought out of general anesthesia and transferred to the recovery in stable co ndition. Tin Moya, my physician nutrition assistant, was present for the entire procedure. His assistance was essential and required for appropriate patient positioning, prepping and draping, surgical exposure, performing the technical details of the operation, placement the implants, closure of the wound, and placement of the sterile bandage. I attest to the content of the Intraoperative Record and any orders documented therein. Any exceptions are noted below.
--- NOTE | 2020-10-13 14:28 | XRay Report ---
XR knee RT 1 or 2V routine HISTORY: 70 years-old Female Surgical Post Op right knee total joint arthroplasty COMPARISON: Knee radiographs 08/03/2020 TECHNIQUE: 2 views the right knee FINDINGS: Right knee total joint arthroplasty and patella resurfacing. Anterior midline skin alex are noted along with expected postsurgical soft tissue swelling and deep tissue air. No acute fracture, malalig nment or unexpected opaque foreign body. 1.6 cm ossification projects over the popliteal tissues. IMPRESSION: Right knee total joint arthroplasty and patella resurfacing with expected postoperative c hanges. ACT 112: Negative or not required by law. The above report was generated using voice recognition software. It may contain grammatical, syntax o r spelling errors. Electronically signed by: Jeronimo Del Valle M.D. 10/13/2020 2:27 PM
[2020-10-13] MEDS ORDERED: MAGNESIUM HYDROXIDE SUSP 30 ML UDC PO PRN (15:20)
[2020-10-13] MEDS ORDERED: bisacodyL 10 MG SUPP PR PRN (15:20)
[2020-10-13] MEDS ORDERED: SODIUM CHLORIDE 0.9% 1000ML 1,000 ML IV SCH (15:20)
[2020-10-13] MEDS ORDERED: ONDANSETRON INJ 2 MG/ML 2 ML VIAL IV PRN (15:20)
[2020-10-13] MEDS ORDERED: NALOXONE HCL 0.4 MG/1 ML VIAL/CARP IV PRN (15:20)
[2020-10-13] MEDS ORDERED: NON-FORMULARY MEDICATION (Cbd Oil 1 EA) TOP PRN (15:20)
[2020-10-13] MEDS ORDERED: oxyCODONE HCL IR 5 MG TAB (IMMEDIATE RELEASE) PO PRN (15:20)
[2020-10-13] MEDS ORDERED: ALUMINUM/MAGNESIUM SUSP 30 ML UDC PO PRN (15:20)
[2020-10-13] MEDS ORDERED: HYDROmorphone INJ 0.5 MG/0.5 ML SYR IV PRN (15:20)
[2020-10-13] MEDS ORDERED: METOCLOPRAMIDE HCL INJ 5 MG/ML 2 ML VIAL IV PRN (15:20)
--- NOTE | 2020-10-13 15:25 | Anesthesiology Progress Note ---
Date of Service October 13, 2020 Anesthesia Post Procedure Vital Signs Vital Signs: Temp Pulse Pulse Resp BP BP Pulse Ox 10/13/20 14:55 36.6 C 89 18 117/73 92 10/13/20 14:45 89 13 121/73 94 10/13/20 14:35 73 17 145/69 H 98 10/13/20 14:25 85 20 138/69 99 10/13/20 14:15 36.4 C L 87 13 141/67 H 97 10/13/20 09:08 36.5 C 77 20 154/80 H 98 Transfer of Care Handoff Completed per policy Notes Mental Status: alert / awake / arousable Patient Amnestic to Procedure: Yes Nausea / Vomiting: adequately controlled Pain: adequately controlled Airway Patency, RR, SpO2: stable & adequate BP & HR: stable & adequate Hydration State: stable & adequate Anesthetic Complications: no major complications apparent
[2020-10-13] MEDS: Scopolamine CHECK PATCH PLACEMENT SCH (15:45)
[2020-10-13] MEDS ORDERED: EPINEPHrine INJ 1 MG/ML AMP IM PRN (15:53)
[2020-10-13] MEDS: KETOROLAC TROMETHAMINE 15 MG/ML VIAL IV SCH ×2 (16:21→21:23)
[2020-10-13] MEDS: ASCORBIC ACID 500 MG TAB PO SCH (17:38)
[2020-10-13] MEDS: FERROUS GLUCONATE 324 MG TAB PO SCH (17:38)
[2020-10-13] MEDS ORDERED: TRANEXAMIC ACID / 0.7% NACL 1,000 MG/100 ML BAG IV SCH (20:10)
[2020-10-13] MEDS ORDERED: traMADol HCL 50 MG TABLET PO PRN (20:15)
[2020-10-13] MEDS: DOCUSATE SODIUM 100 MG CAP PO SCH (20:33)
[2020-10-13] MEDS: ceFAZolin 1000MG 1,000 MG/7.5 ML SYR IV SCH (20:33)
[2020-10-13] MEDS: ASPIRIN 81 MG ECTAB PO SCH (20:33)
[2020-10-13] MEDS: TAPENTADOL HCL ER 50 MG TABCR PO SCH (20:41)
[2020-10-13] MEDS ORDERED: MAGNESIUM OXIDE 400 MG TAB PO SCH (21:00)
[2020-10-13] MEDS ORDERED: SENNA 8.6 MG TAB PO SCH (21:00)
[2020-10-13] MEDS ORDERED: MULTIVITAMIN TAB PO SCH (21:00)
[2020-10-13] MEDS ORDERED: CALCIUM CARBONATE 1250MG TAB PO SCH (21:00)
[2020-10-13] MEDS ORDERED: PSYLLIUM 58.6% POWDER PACKET PO SCH (21:00)
[2020-10-13] MEDS ORDERED: CHOLECALCIFEROL 1,000 UNITS 25 MCG TAB PO SCH (21:00)
[2020-10-13] MEDS: ACETAMINOPHEN 500 MG TAB PO SCH (21:23)
[2020-10-14] MEDS: Scopolamine CHECK PATCH PLACEMENT SCH ×2 (00:50→07:49)
[2020-10-14] MEDS: KETOROLAC TROMETHAMINE 15 MG/ML VIAL IV SCH ×2 (03:47→09:53)
[2020-10-14] MEDS: ceFAZolin 1000MG 1,000 MG/7.5 ML SYR IV SCH (03:47)
[2020-10-14] MEDS: ACETAMINOPHEN 500 MG TAB PO SCH (05:51)
[2020-10-14 07:25] LABS: Hematocrit (blood only) 30.5 % (37-47); Hemoglobin 10.7 g/dL (12.0-16.0); Mean Corpuscular Hemoglobin 29.6 pg (25-34); Mean Corpuscular Hgb Conc 35.1 g/dL (32-36); Mean Corpuscular Volume 84.3 fL (80-100); Mean Platelet Volume 9.2 fL (7.4-10.4); Platelet Count 243 K/uL (130-400); RDW Coefficient of Variation 12.3 % (11.5-14.5); RDW Standard Deviation 38.4 fL (36.4-46.3); Red Blood Count 3.62 M/uL (4.2-5.4); White Blood Count 7.65 K/uL (4.8-10.8)
[2020-10-14] MEDS: DOCUSATE SODIUM 100 MG CAP PO SCH (07:47)
[2020-10-14] MEDS: ASPIRIN 81 MG ECTAB PO SCH (07:48)
[2020-10-14] MEDS: FERROUS GLUCONATE 324 MG TAB PO SCH (07:48)
[2020-10-14] MEDS: ASCORBIC ACID 500 MG TAB PO SCH (07:48)
[2020-10-14 07:53] LABS: BUN Creatinine Ratio 16.9 (10-20); Calcium 7.9 mg/dl (8.5-10.1); Creatinine Clr Calc Pharmacy 83.3 ml/min; Est GFR (African American) 106.6; Potassium 4.1 mmol/L (3.5-5.1)
[2020-10-14] MEDS ORDERED: dexAMETHasone 4 MG TAB PO SCH (08:00)
--- NOTE | 2020-10-14 08:45 | Progress Notes ---
DATE: 10/14/2020 SUBJECTIVE: A 70-year-old white female postop day 1 from right knee replacement. She is doing well. Had a pretty good night. Pain is controlled. No chest pain or shortness of breath. Not feeling dizzy or lightheaded. OBJECTIVE: VITAL SIGNS: Temperature 36.8. Vital signs stable. GENERAL: Physical examination shows a pleasant, middle-aged female. She is lying in bed this morning and looks quite comfortable. EXTREMITIES: Examination of the right leg reveals the leg to be well aligned. Dressing is clean, dry and intact. She can dorsiflex and plantarflex her foot appropriately. She can do a pretty good straight leg raise. LABORATORY DATA: Hemoglobin 10.7. Hematocrit 30.5. Electrolytes are pending. ASSESSMENT: A 70-year-old white female postop day 1 from a right knee replacement, doing pretty well. Pain is controlled. She is neurologically intact. PLAN: 1. DVT prophylaxis including thigh-high TEDs, SCDs, and aspirin twice a day. 2. PT/OT. Weight bear as tolerated. Right total knee protocol. 3. Pain control, doing okay with current pain regimen. 4. Disposition: Plan to discharge to home later today. She is going to do outpatient therapy.
[2020-10-14] MEDS: TAPENTADOL HCL ER 50 MG TABCR PO SCH (08:55)
[2020-10-14] MEDS ORDERED: NON-FORMULARY MEDICATION (Ascorbic Acid (Vitamin C) 1,000 mg tablet) PO SCH (09:00)
[2020-10-14] MEDS ORDERED: MULTIVITAMIN TAB PO SCH (09:00)
--- NOTE | 2020-10-17 08:01 | Discharge Summary ---
Date of Service October 17, 2020 Discharge Data Procedures Performed Operation Date: 10/13/20 10:40 Actual Procedures p Right Total Knee Arthroplasty(Right) - Quintin Mary MD Hospital Course (1) Status post total right knee replacement: This patient is a 70 year old female admitted on 10/13/20 and underwent total knee arthroplasty. She tolerated the procedure well and there were no complications. Transferred to the PACU post op and later to the orthopedic floor for further care. She was given ancef for antibiotic prophylaxis. She was also given LIZZETTE stockings, SCDs, and aspirin for DVT prophylaxis. Hemoglobin, hematocrit, and vital signs were monitored during her hospital stay and remained stable. Did not require any blood transfusions. There were no complications during her hospital stay. By post op day #1 the patient was tolerating a regular diet, pain was reasonably controlled with oral pain medicine, and she was participating in physical therapy. On post op day #1 the patient was discharged home. She was given printed discharge instructions including prescriptions for extra strength tylenol, aspirin, and tramadol. Continue physical therapy, weight bearing as tolerated. Continue LIZZETTE stockings. Follow up approximately 2 weeks post op or sooner if there are problems or concerns. Coding Level of Care Code None Diagnoses Status post total right knee replacement Z96.651
== END 2020-10-14 13:15 | disposition home or self-care (01) ==
LOC: 3W 08:29 → ASU 08:29

== ENCOUNTER 2024-09-27 08:26 | Observation (INO) ==
--- NOTE | 2024-09-11 10:57 | PAT Medication Instructions ---
Medication Instructions Date of Service September 11, 2024 Home Medications Medication Instructions Recorded epinephrine 0.3 mg/0.3 mL 0.3 mg (0.3 mL) IM Q15M PRN 05/05/23 injection, auto-injector (EpiPen) anaphylaxis #2 ea gabapentin 300 mg capsule 300 mg PO TID #90 caps 05/15/24 ascorbic acid (vitamin C) 1,000 mg tablet 1 g PO QAM cholecalciferol (vitamin D3) 25 mcg (1,000 unit) capsule 25 mcg PO QPM ibuprofen 200 mg capsule 400 - 600 mg PO Q6H PRN Pain magnesium 250 mg tablet 250 mg PO QPM PRN muscle cramps multivitamin (Multiple Vitamins tablet) 1 tab PO QPM psyllium husk 0.4 gram capsule (Metamucil) 0.4 g PO QPM Cbd Oil 1 dose miscellaneous UD PRN Pain aspirin 81 mg tablet,delayed release 81 mg PO QAM calcium 500 mg tablet 500 mg PO PM epinephrine 0.3 mg/0.3 mL injection, auto-injector (EpiPen) 0.3 mg (0.3 mL) IM Q15M PRN anaphylaxis gabapentin 300 mg capsule 300 mg PO TID acetaminophen 500 mg tablet 500 mg PO Q6H PRN Pain losartan 100 mg tablet 100 mg PO QAM triamcinolone acetonide 0.1 % topical cream 1 applic topical BID PRN Skin Irritation Continue as directed epinephrine 0.3 mg/0.3 mL injection, auto-injector (EpiPen) 0.3 mg (0.3 mL) IM Q15M PRN anaphylaxis (if needed) ASK your surgeon for instructions ibuprofen 200 mg capsule 400 - 600 mg PO Q6H PRN Pain STOP taking 24 hours before surgery Cbd Oil 1 dose miscellaneous UD PRN Pain triamcinolone acetonide 0.1 % topical cream 1 applic topical BID PRN Skin Ir ritation DO NOT take the morning of surgery ascorbic acid (vitamin C) 1,000 mg tablet 1 g PO QAM losartan 100 mg tablet 100 mg PO QAM Take morning of surgery With a small sip of water, OTHERWISE NOTHING TO EAT OR DRINK AFTER MIDNIGHT: aspirin 81 mg tablet,delayed release 81 mg PO QAM (unless surgeon directed otherwise) gabapentin 300 mg capsule 300 mg PO TID acetaminophen 500 mg tablet 500 mg PO Q6H PRN Pain (if needed) Take evening before surgery cholecalciferol (vitamin D3) 25 mcg (1,000 unit) capsule 25 mcg PO QPM magnesium 250 mg tablet 250 mg PO QPM PRN muscle cramps (if needed) multivitamin (Multiple Vitamins tablet) 1 tab PO QPM psyllium husk 0.4 gram capsule (Metamucil) 0.4 g PO QPM calcium 500 mg tablet 500 mg PO PM gabapentin 300 mg capsule 300 mg PO TID acetaminophen 500 mg tablet 500 mg PO Q6H PRN Pain (if needed) Other Notes If you have any questions please call us at [phone] or [phone] or [phone] or [phone]
--- NOTE | 2024-09-13 08:35 | Anesthesiology Consultation ---
Date of Service September 13, 2024 Assessment & Plan (1) Encounter for pre-operative examination: - Outpatient joint assessment: Patient is currently scheduled for inpatient pathway. If re-evaluated and patient/surgeon requests outpatient pathway, patient is acceptable candidate for outpatient joint program from anesthesia standpoint pending surgeon's office assessment of pt motivation/support/completion of same day joint program preop requirements. Chart Review Chart Review: Acceptable Risk for Surgery and Patient seen in Pre Admission Testing Teaching & Discussion Pre-Anesthesia Teaching/Discussion Notes: Instructed NPO after midnight before surgery, except medications with 15 cc of water. Medication instructions provided according to the PAT guidelines. History Surgery Operation Date: 09/27/24 12:00 Proposed Procedures p Left Total Hip Arthroplasty Anterior - Daniel Moctezuma, Height/Weight Height: 5 ft 7 in Weight: 68.2 kg Allergies Allergy/AdvReac Type Severity Reaction Status Date / Time hornet venom Allergy Intermediate Hives Verified 09/11/24 07:35 Medications Home Medications Medication Instructions Recorded Confirmed Last Taken ascorbic acid (vitamin C) 1,000 mg 1 g PO QAM 03/04/20 09/11/24 10/12/20 20:00 tablet cholecalciferol (vitamin D3) 25 25 mcg PO QPM 03/04/20 09/11/24 10/12/20 20:00 mcg (1,000 unit) capsule ibuprofen 200 mg capsule 400 - 600 mg PO Q6H PRN Pain 03/04/20 09/11/24 10/04/20 magnesium 250 mg tablet 250 mg PO QPM PRN muscle cramps 03/04/20 09/11/24 10/12/20 20:00 multivitamin (Multiple Vitamins 1 tab PO QPM 03/04/20 09/11/24 10/12/20 20:00 tablet) psyllium husk 0.4 gram capsule 0.4 g PO QPM 03/04/20 09/11/24 10/12/20 20:00 (Metamucil) Cbd Oil 1 dose miscellaneous UD PRN Pain 05/08/20 09/11/24 10/06/20 aspirin 81 mg tablet,delayed 81 mg PO QAM 09/17/20 09/11/24 10/12/20 10:00 release calcium 500 mg tablet 500 mg PO PM 09/17/20 09/11/24 10/12/20 20:00 epinephrine 0.3 mg/0.3 mL 0.3 mg (0.3 mL) IM Q15M PRN 05/05/23 09/11/24 Unknown injection, auto-injector (EpiPen) anaphylaxis #2 ea acetaminophen 500 mg tablet 500 mg PO Q6H PRN Pain 09/11/24 09/11/24 Unknown losartan 100 mg tablet 100 mg PO QAM 09/11/24 09/11/24 Unknown triamcinolone acetonide 0.1 % 1 applic topical BID PRN Skin 09/11/24 09/11/24 Unknown topical cream Irritation gabapentin 300 mg capsule 300 mg PO TID #90 caps 09/12/24 Unknown Past Medical History Medical History (Updated 09/13/24 @ 13:24 by Carla Mathur PA-C) Borderline high cholesterol Chronic back pain Degenerative disc disease History of COVID- (~09/2022) 09/2022, not hosp; resolved except for altered taste Hx of basal cell carcinoma s/p excision Hypertension controlled, stable per pt Idiopathic polyneuropathy Lumbar radiculopathy Lumbar spinal stenosis Severe at L4-L5 Mitral valve prolapse Pt reports very remote h/o echocardiogram, found incidentally. No murmur noted on PAT exam on 05/14/20 for left TKA on 06/03/20 which patient tolerated well per records Osteoarthritis Restless leg syndrome Patient denies h/o stroke, seizures, heart attack, heart failure, DM, blood clots/DVTs or blood transfusions. Exercise / Class Metabolic Activity II 4-5 Yardwork/Stairs/Walk up hill (denies chest discomfort or shortness of breath with one flight of stairs) Past Family History Family History Uncle Myocardial infarction Mother Hypertension Sister Hypertension Denies family history of Ovarian cancer Prostate cancer Breast cancer Colorectal cancer Past Surgical History Surgical History (Updated 09/13/24 @ 13:24 by Carla Mathur PA-C) H/O knee surgery multiple and femoral osteotomy History of cataract surgery left History of dilatation and curettage History of esophagogastroduodenoscopy (EGD) History of left femoral derotational osteotomy History of left knee replacement Left TKA 06/03/20= Done under SAB at L4-5 with 1 attempt. Hx of basal cell carcinoma excision Nausea and vomiting after administration of anesthetic agent S/P total knee arthroplasty 10/13/20 Dr. Quintin Mary- Zabrina TKA Past Anesthesia History No Hx of Anesthesia Complications and No Family Hx of Anesthesia Complications History of PONV History of PONV (denies needing scop patch) and Hx of Motion Sickness Social History Smoking Status: Never smoker Do You Dip or Chew Tobacco: No Hx Alcohol Use: Yes Alcohol type: beer alcohol intake frequency: 0-2 drinks per day Hx Substance Use: Yes substance use type: former substance user and marijuana (-advised) Substance Use Type Other:: CBD OIL TOPICALLY HAND/NIGHTLY Last Used Substance: Unknown Last Used Substance Other:: in the past Review of Systems Patient denies chest pain, shortness of breath, dyspnea on exertion, snoring, witnessed apneas, reflux, fever, chills, cough, wheezing, or palpitations. Physical Exam Vital Signs Vitals BP 157/80 P 73 TEMP 98.3 SP02 96% on RA RESP 18 Physical Patient resting comfortably in chair in no acute distress, alert and oriented, responding appropriately throughout visit Full cervical extension range of motion without pain TMD 3.5 finger breadths Mallampati Score 2 Dentition: two crowns, denies chipped or loose teeth, caps, implants or bridges Lungs: normal respiratory effort. Good air movement, clear throughout to auscultation, no adventitious breath sounds Cardiac: regular rate and rhythm, no murmurs noted Carotid arteries: negative bruit bilat Lab Results Anesthesia Preop Results Results Anesthesia Widget: WBC 4.57 K/ul (4.8-10.8) L 09/13/24 Hgb 12.8 g/dl (12.0-16.0) 09/13/24 Hct 35.3 % (37.0-47.0) L 09/13/24 Plt 366 K/uL (130-400) 09/13/24 Na 131 mmol/L (136-145) L 09/13/24 K 4.4 mmol/L (3.5-5.1) 09/13/24 Cl 102 mmol/L (98-107) 09/13/24 CO2 24 mmol/L (21-32) 09/13/24 BUN 14 mg/dl (6-23) 09/13/24 Creat 0.54 mg/dl (0.6-1.2) L 09/13/24 Glucose Level 97 mg/dl (70-99(Fasting)) 09/13/24 PT 10.8 Seconds (9.0-12.0) 09/13/24 PTT 25 Seconds (21-31) 09/13/24 INR 1.0 (0.9-1.1) 09/13/24 Blood Type B Positive 09/13/24 Antibody Screen NEGATIVE 09/13/24 Testing Electrocardiogram Date: 09/13/24 NSR, rate 66 bpm Minimal voltage criteria for LVH, may be normal variant Chest X-Ray Date: 09/13/24 No acute cardiopulmonary disease. Other Testing Lumbar spine MRI 02/26/24 1. Severe central canal stenosis at L4-L5, similar to MRI of February 08, 2022. 2. Severe multilevel facet arthrosis and moderate degenerative disc disease within the lumbar spine. Findings similar to previous MRI. 3. Multilevel neural foraminal stenosis, as above.
[~2024-09-27 08:26] MED LIST changes: -ACETAMINOPHEN 500 MG TAB PO SCH; -BUPIVACAINE LIPOSOME/PF 266 MG, BUPIVACAINE/EPINEPHRINE 50 ML, SODIUM CHLORIDE 0.9% 30 ... INFIL SCH; -EPINEPHrine INJ 1 MG/ML AMP ONE; -FAMOTIDINE 20 MG TAB PO SCH; -GABAPENTIN 300 MG CAP PO SCH; -LR 500ML BOLUS, THEN 15ML/HR IV SCH; -LR 60ML/HR IV SCH; -METOCLOPRAMIDE HCL 10 MG TABLET PO SCH; -ROPIVACAINE 0.5% 5 MG/ML 30 ML VIAL ONE; -Scopolamine 1 MG TDSY TD SCH; -TRANEXAMIC ACID 1,000 MG **IV Intra-op IV SCH; -ceFAZolin 2000MG 2,000 MG/15 ML SYR IV SCH
[2024-09-27] MEDS: dexAMETHasone**PF** 10 MG/ML VIAL IV SCH (09:41)
[2024-09-27] MEDS: FAMOTIDINE 20 MG TAB PO SCH (09:41)
[2024-09-27] MEDS: GABAPENTIN 300 MG CAP PO SCH ×2 (09:41→17:00)
[2024-09-27] MEDS: ACETAMINOPHEN 500 MG TAB PO SCH ×2 (09:41→16:17)
[2024-09-27] MEDS: LR 500ML BOLUS, THEN 15ML/HR IV SCH (09:42)
[2024-09-27] MEDS: LR 60ML/HR IV SCH (09:42)
--- NOTE | 2024-09-27 10:02 | History & Physical Bridge Note ---
Date of Service September 27, 2024 History & Physical Bridge Note I have examined the patient, reviewed the History & Physical and in the interval since the performance of the History & Physical I have noted the following changes of clinical significance: no changes noted
[2024-09-27] MEDS ORDERED: MIDAZOLAM HCL 1 MG/ML 2ML VIAL ONE ×2 (10:06)
[2024-09-27] MEDS ORDERED: LIDOCAINE 2% 2 ML VIAL/AMP(20MG/ML) INFIL ONE (10:06)
[2024-09-27] MEDS ORDERED: PROPOFOL IV EMULSION 10 MG/ML 20 ML VIAL IV ONE ×2 (10:06→12:05)
[2024-09-27] MEDS ORDERED: ATROPINE SULFATE 0.1 MG/ML 10ML SYR IV PRN (10:25)
[2024-09-27] MEDS ORDERED: fentaNYL citrate PF 100 MCG/2 ML VIAL IV PRN (10:25)
[2024-09-27] MEDS ORDERED: ONDANSETRON INJ 2 MG/ML 2 ML VIAL IV PRN ×2 (10:25→15:48)
[2024-09-27] MEDS ORDERED: ePHEDrine sulfate 50 MG/ML AMP IV PRN (10:25)
[2024-09-27] MEDS: TRANEXAMIC ACID 1,000 MG **IV Pre-op IV SCH (10:57)
[2024-09-27] MEDS: ceFAZolin 2000MG 2,000 MG/15 ML SYR IV SCH (11:05)
[2024-09-27] MEDS ORDERED: ONDANSETRON INJ 2 MG/ML 2 ML VIAL ONE (11:29)
[2024-09-27] MEDS: ORTHO JOINT ANESTHETIC ONE (11:49)
[2024-09-27] MEDS: ROPIV 0.5% 246mg, Ketorolac 30mg, EPINEPHrine 0.5mg in NSS INFIL SCH (11:49)
[2024-09-27] MEDS: TRANEXAMIC ACID 1,000 MG **IV Intra-op IV SCH (12:08)
--- NOTE | 2024-09-27 12:14 | Operative Report ---
PG Post Operative Report Pre & Post Diagnosis Operation Date: 09/27/24 11:00 Pre-Op Diagnosis: Left Hip Arthritis Post-Op Diagnosis: Left Hip Arthritis I identified the patient and participated in the time-out.: Yes Procedure Operation Date: 09/27/24 11:00 Actual Procedures p Left Anterior Total Hip Arthroplasty, Uncemented(Left) - Daniel Moctezuma DO Surgeon Daniel Moctezuma DO Log Haul Operator Jeronimo Schulz PA-C Estimated Blood Loss 200 Findings Consistent with Post-Op Diagnosis Specimens Left femoral head Description of Procedure Implants used I used a ZimmerBiomet total hip arthroplasty system with a size 5 standard offset Avenir Complete stem, a 48 mm G7 cup with a 25mm screw, an E1 polyethylene liner, a 32 mm ceramic head with a +3.5 neck. Jersey arrived at the hospital for the above procedure. She was seen in the preoperative holding area and the operative extremity was identified and signed. She was given a spinal anesthetic, a preoperative antibiotic, and TXA. She was then taken back to the operating room and laid on the table in the supine position. She was given basic sedation. The operative leg was secured to a Puristst leg positioner. The hip was then prepped and draped in sterile fashion. A timeout was done and the patient and the operative extremity was properly identified. An anterior approach was used. Dissection was taken down through the fascia and the tensor muscle belly was retracted laterally and the rectus was retracted medially. The circumflex vessels were identified and ligated. The capsule was then incised and tagged for later repair. The femoral neck was then cut and the femoral head was removed. The acetabulum was exposed. Time was spent doing a complete circumferential labral release. Sequential reaming of the acetabulum up to a size 47 reamer was done. Final reamings were done under fluoroscopy to ensure appropriate version. A Biomet 48 mm G7 cup was then impacted into place. A single 25 mm screw was placed. The E1 polyethylene liner was then snapped into place. Surrounding soft tissues were then injected with 100 cc of an orthopedic pain control cocktail. The proximal femur was then exposed. Sequential broaching up to a size 5 broach was done. Off that broach a size 32 head with a +3.5 neck was trialed. The hip was reduced and fluoroscopic images showed anatomic alignment of the implants in acceptable length. The broach was removed. The final size 5 standard offset Avenir Complete stem was then impacted into place. A ceramic 32 mm head with a +3.5 neck was then impacted onto the stem and the hip was reduced. Final fluoroscopic images showed anatomic alignment of the hip. The capsule was then closed with #1 Vicryl suture. A dilute betadyne lavage was then done for 3 minutes. The joint was then irrigated with normal saline solution. The fascia was closed with #1 PDS suture. Skin was closed with 2-0 Vicryl, alex, and a Silverlon dressing. She was then transferred to a hospital bed and taken to the post anesthesia care unit in stable condition. She tolerated the procedure well. Jeronimo Schulz PA-C, was present for the entire procedure. He was critical for patient positioning, prepping, draping, retraction exposure, wound closure and application of sterile dressing. I attest to the content of the Intraoperative Record and any orders documented therein. Any exceptions are noted below.
--- NOTE | 2024-09-27 12:53 | XRay Report ---
XR hip 1V LT w pelvis CLINICAL HISTORY: IN PACU - Post Surgical COMPARISON: None FINDINGS: Left hip prosthesis shows no hardware complication. There is expected soft tissue gas. Ski n alex are present laterally. There are moderate degenerative changes at the right hip. IMPRESSION: Unremarkable postoperative exam. ACT 112: Negative or not required by law. Electronically signed by: Javi Da Silva M.D. 09/27/2024 12:51 PM
--- NOTE | 2024-09-27 13:12 | Fluoroscopy Report ---
FL hip LT 1V CLINICAL HISTORY: LEFT ANTERIOR HIP COMPARISON STUDY: 09/27/2024 FLUOROSCOPY TIME: 11 seconds FLUOROSCOPY IMAGES: 1 EXPOSURE DOSE: 0.9 mGy FINDINGS: Fluoroscopy was provided for left hip prosthesis. IMPRESSION: Intraoperative fluoroscopy. ACT 112: Negative or not required by law. Electronically signed by: Javi Da Silva M.D. 09/27/2024 1:10 PM
--- NOTE | 2024-09-27 15:11 | Anesthesiology Progress Note ---
Date of Service September 27, 2024 Anesthesia Post Procedure Vital Signs Vital Signs: Temp Pulse Pulse Resp BP Pulse Ox O2 Del Method 09/27/24 15:00 19 L 16 154/85 H 95 Room Air 09/27/24 14:45 66 16 134/78 95 Room Air 09/27/24 14:30 70 13 142/75 H 95 Room Air 09/27/24 14:15 66 16 151/80 H 97 Room Air 09/27/24 14:00 81 16 136/76 96 Room Air 09/27/24 13:50 36.3 C L 72 16 145/76 H 95 Room Air 09/27/24 13:40 71 14 153/76 H 97 Room Air 09/27/24 13:30 62 14 147/76 H 96 Room Air 09/27/24 13:20 65 12 134/71 98 Room Air 09/27/24 13:10 73 15 128/77 97 Room Air 09/27/24 13:00 70 21 133/72 100 Oxymask 09/27/24 12:50 36.3 C L 77 21 108/79 98 Oxymask 09/27/24 12:40 36.2 C L 86 20 117/64 98 Oxymask 09/27/24 09:30 36.8 C 76 18 168/89 H 97 Room Air O2 Flow Rate 09/27/24 15:00 09/27/24 14:45 09/27/24 14:30 09/27/24 14:15 09/27/24 14:00 09/27/24 13:50 09/27/24 13:40 09/27/24 13:30 09/27/24 13:20 09/27/24 13:10 09/27/24 13:00 3 09/27/24 12:50 6 09/27/24 12:40 10 09/27/24 09:30 Transfer of Care Handoff Completed per policy Notes Mental Status: alert / awake / arousable Patient Amnestic to Procedure: Yes Nausea / Vomiting: adequately controlled Pain: adequately controlled Airway Patency, RR, SpO2: stable & adequate BP & HR: stable & adequate Hydration State: stable & adequate Neuraxial Anesthesia: was administered and sensory block is resolving Anesthetic Complications: no major complications apparent and Pt Satisfied with anesthetic care
[2024-09-27] MEDS ORDERED: oxyCODONE HCL IR 5 MG TAB (IMMEDIATE RELEASE) PO PRN (15:48)
[2024-09-27] MEDS ORDERED: MAGNESIUM HYDROXIDE SUSP 30 ML UDC PO PRN (15:48)
[2024-09-27] MEDS ORDERED: METOCLOPRAMIDE HCL INJ 5 MG/ML 2 ML VIAL IV PRN (15:48)
[2024-09-27] MEDS ORDERED: HYDROmorphone INJ 0.5 MG/0.5 ML SYR IV PRN (15:48)
[2024-09-27] MEDS ORDERED: bisacodyL 10 MG SUPP PR PRN (15:48)
[2024-09-27] MEDS ORDERED: NALOXONE HCL 0.4 MG/1 ML VIAL/CARP IV PRN (15:48)
[2024-09-27] MEDS: KETOROLAC TROMETHAMINE 15 MG/ML VIAL IV SCH (16:17)
[2024-09-27] MEDS: ceFAZolin 1000MG 1,000 MG/7.5 ML SYR IV SCH (18:41)
[2024-09-27] MEDS: SENNA 8.6 MG TAB PO SCH (21:36)
[2024-09-27] MEDS: DOCUSATE SODIUM 100 MG CAP PO SCH (21:36)
[2024-09-27] MEDS: ASPIRIN 81 MG ECTAB PO SCH (21:37)
[2024-09-28 04:10] VITALS: TEMP 97.5
[2024-09-28 07:15] VITALS: BP 167/83; PULSE 78; RESP 14; O2SAT 96
[2024-09-28] MEDS: MULTIVITAMIN TAB PO SCH (08:06)
[2024-09-28] MEDS: LOSARTAN POTASSIUM 50 MG TAB PO SCH (08:06)
[2024-09-28] MEDS: dexAMETHasone 4 MG TAB PO SCH (08:06)
--- NOTE | 2024-09-28 08:21 | Orthopedic Progress Note ---
Date of Service September 28, 2024 Assessment & Plan (1) Status post left hip replacement: Overall she is doing fairly well. She is not having much pain in the left hip. She will be seen by physical therapy today for ambulation and range of motion exercises. She is on aspirin for DVT prophylaxis. She can be discharged to home later today. She will follow-up orthopedics in 2 weeks. Ashley Putnam was seen and examined at bedside this morning. Overall she is doing fairly well. She is not having much pain in the left hip. She has been up and ambulating to the bathroom. She has no complaints.. Review of Systems All systems reviewed & are unremarkable except as noted in HPI & below. Physical Exam On physical exam of the left hip, the dressing is clean and dry. Her leg is out full extension. She has active dorsiflexion plantarflexion of her left ankle.. Results & Data Results & Data Laboratory Results . Diagnostic Findings Postoperative x-rays of the left hip show the prosthesis to be in anatomic alignment without any evidence of fracture complication, or loosening.. PG Care Time/CCT Total # of Minutes Spent Total Time Spent with Patient: Total time spent is greater than 50% in coordination of care (as documented) at patient's floor/unit and/or counseling patient: Coding Level of Care Code 43191 Post Operative Follow-Up Diagnoses Status post left hip replacement Z96.642
--- NOTE | 2024-09-28 08:22 | Discharge Summary ---
Date of Service September 28, 2024 Principal Diagnosis Same as "Discharge Diagnosis" noted below under Discharge Instructions. Discharge Exam On physical exam of the left hip, the dressing is clean and dry. Her leg is out full extension. She has active dorsiflexion plantarflexion of her left ankle.. Discharge Data Procedures Performed Operation Date: 09/27/24 11:00 Actual Procedures p Left Anterior Total Hip Arthroplasty, Uncemented(Left) - Daniel Moctezuma DO Ordered Studies 09/27/24 11:00 FL hip LT 1V Routine Hospital Course (1) Status post left hip replacement: On September 27, 2024 Jersey arrived at [facility] and underwent a left hip replacement without complication. She had a spinal anesthetic. Postoperatively, she was started on aspirin for DVT prophylaxis and transferred to the general orthopedic floors. Her hospital course was uneventful. On postop day #1, her vital signs were stable and her pain was well-controlled. She was able to participate well with physical therapy doing ambulation and ra nge of motion exercises. She was then discharged to home. She will follow-up orthopedics in 2 weeks. PG Care Time/CCT Total # of Minutes Spent Total Time Spent with Patient: Total time spent is greater than 50% in coordination of care (as documented) at patient's floor/unit and/or counseling patient: Discharge Plan Discharge Items Patient Disposition: Home - Self-Care Reason For Visit: Left Hip Arthritis Discharge Diagnosis: Left hip replacement Activity: Per Instructions section Non-emergency contact: Hospitalist Call non-emergency contact if: your wound has increased redness and your wound has increased drainage Follow-up/Referrals: Cande Zhang MD [Primary Care Provider] - Diet: Regular Addtl Attending Provider Instructions: Activity and Therapy Recommendations: * If you are using [facility] then therapy will be provided at your home until they feel you have accomplished all of your goals. * If you are using [facility] then Physical Therapy will be provided until they feel you are ready to start Outpatient Physical Therapy. * If you are not using home therapy then Outpatient Physical Therapy should start about 3-5 days from your day of surgery. Therapy will last about 6-10 weeks * You were shown a series of exercises in the hospital. Do these exercises three times each day including the exercises you were shown in physical therapy. * Get up and walk several times each day.~ For the first four weeks, try not to stand or walk for more than one hour at a time. If you do stand or walk for more than one hour, you will not hurt anything, but your leg will likely swell.~~ * As you feel comfortable, you may change from the walker or crutches to a cane and~then to independent walking. Medications: * Narcotic You will likely be sent home from the hospital with a prescription for the narcotic pain medication that worked best throughout your stay. * Cefadroxil -take the antibiotic twice a day for 10 days to help prevent infection. * Aspirin Most patients will be required to take Aspirin 81mg twice a day for 6 weeks after surgery. This is obtained [id number] and a prescription is not necessary. * Other medications may be prescribed for specific circumstances. If you have any questions, please call the office at . * Resume previous home medications unless otherwise instructed TEDs/Elastic Stockings: The white elastic stockings help limit swelling and prevent blood clots from forming in your legs. The more you wear them, the more they work. Wear them for 2 weeks. Dressing Care: Leave the Silverlon dressing in place for 7 days. After 7 days you may remove the dressing. If the incision is not draining then you may leave the alex open to air. If there is a little bit of drainage or if the alex are getting stuck on your clothing then cover the incision with a dry dressing. The alex will be removed at your 2 week follow-up appointment. Showering: You may shower with the Silverlon dressing in place. Do not let the shower spray hit the dressing directly. Pat the Silverlon dressing dry. If the dressing becomes wet underneath, then simply remove the dressing. Keep the incision dry until you are 7 days out from the day of surgery. After 7 days you may remove the Silverlon dressing and shower with the alex exposed. Let soapy water run over the alex and pat them dry. Do not scrub or soak the incision. Diet: You may resume your previous diet. Things To Watch For: * Drainage from the incision site that occurs more than one week after your surgery. * Increased redness at the incision site. * Fever above 102 degrees Fahrenheit. * Unusual chest pain or shortness of breath. * Call [facility] at with any of the above problems Follow-Up Visit: Follow-up with Dr. Moctezuma's office 2-3 weeks after your day of surgery. We will remove your alex and answer any questions. If you have any additional questions or concerns, Dr Moctezuma is usually in the office at the same time and will be available An appointment was probably scheduled when you signed-up for surgery in the office. If you have any questions call Office Instructions: More detailed instructions as well as Frequently Asked Questions were provided in a folder by our office when you signed-up for surgery. Please review these instructions when you get home. If you have any further questions or concerns, please feel free to call the office at [phone] Pending Studies at Discharge: No Stand-Alone Forms: My [facility], Smoking Cessation Medications and DC Order Prescriptions: New cefadroxil 500 mg capsule 500 mg PO BID 10 Days Qty: 20 0RF oxycodone 5 mg tablet 5 mg PO Q6H PRN (Reason: pain) Qty: 30 0RF Continued gabapentin 300 mg capsule 300 mg PO TID Qty: 90 2RF ascorbic acid (vitamin C) 1,000 mg tablet 1 g PO QAM magnesium 250 mg tablet 250 mg PO QPM PRN (Reason: muscle cramps) cholecalciferol (vitamin D3) 25 mcg (1,000 unit) capsule 25 mcg PO QPM multivitamin [Multiple Vitamins] Tablet 1 tab PO QPM psyllium husk [Metamucil] 0.4 gram capsule 0.4 g PO QPM ibuprofen 200 mg capsule 400 - 600 mg PO Q6H PRN (Reason: Pain) epinephrine [EpiPen] 0.3 mg/0.3 mL auto-injector 0.3 mg IM Q15M PRN (Reason: anaphylaxis) Qty: 2 1RF Rx Instructions: May repeat dose x1 after 5-15 min. Proceed to ER after use. calcium 500 mg Tablet 500 mg PO PM Cbd Oil 1 dose miscellaneous UD PRN (Reason: Pain) Patient Comments: Rx Instructions: uses a topical form and an injestible form as needed for pain triamcinolone acetonide 0.1 % cream 1 applic topical BID PRN (Reason: Skin Irritation) losartan 100 mg tablet 100 mg PO QAM acetaminophen 500 mg Tablet 500 mg PO Q6H PRN (Reason: Pain) Changed aspirin 81 mg Tablet,Delayed Release (Dr/Ec) 81 mg PO BID 42 Days Qty: 0 0RF Discharge Orders: Discharge Order (Routine); Ordered 09/28/24 Ordered By: Daniel Moctezuma Admission Data Admit Date/Time: 09/27/24 12:43 Attending Provider: Daniel Moctezuma Admit Provider: Daniel Moctezuma Primary Care Provider: Cande Zhang
== END 2024-09-28 12:20 | disposition home or self-care (01) ==
LOC: PACUINP 08:26 → ASU 08:26 → 3W 15:42